=== PATIENT | female | born 1970 | race African-American/Black ===

== ENCOUNTER 2019-05-19 17:02 | Emergency (ER) | payer MEDICAID ==
[~2019-05-19] VITALS: Ht 177.8 cm; Wt 119.3 kg
[~2019-05-19 17:02] MED LIST: METF-988 PO
[2019-05-19 17:08] VITALS: BP 133/75
[2019-05-19 19:19] VITALS: BP 118/72
== END 2019-05-19 19:19 | disposition home or self-care (01) ==
LOC: MED 17:02
DX: R25.3 Fasciculation (principal); H53.9 Unspecified visual disturbance
CPT/HCPCS: 82948; 99283

== ENCOUNTER 2019-06-11 14:01 | Emergency (ER) | payer MEDICAID ==
[~2019-06-11] VITALS: Ht 172.7 cm; Wt 119.7 kg
[2019-06-11 14:14] VITALS: BP 140/79
--- NOTE | 2019-06-11 15:01 | NUR ---
PT AMBULATED TO ER BED 7
--- NOTE | 2019-06-11 15:10 | NUR ---
49/F TO ED WITH C/O CP. EKG PERFORMED PER TRIAGE PROTOCOL. NO DISTRESS NOTED. PT REPORTS CHEST PAIN WITH L ARM NUMBNESS UPON MOVEMENT OF ARM. SMALL EQUIPMENT OPERATOR EQUAL BIALTERALLY. NO DEFECITS NOTED. SKIN WARM, DRY. SPEAKING IN COMPLETE SENTENCES. IN BED FOR MD HOANG. ATTATCHED TO [facility] MONITORING.
--- NOTE | 2019-06-11 15:18 | NUR ---
Patient being evaluated by Dr. Hawthorne at bedside.
--- NOTE | 2019-06-11 15:45 | NUR ---
Patient taken to XRAY via wheelchair by tech.
[2019-06-11 16:24] LABS: BASOPHILS # (AUTO) 0.1 K/uL (0.00-0.22); BASOPHILS % (AUTO) 0.9 % (0.0-2.0); EOSINOPHILS # (AUTO) 0.1 K/uL (0-0.4); HEMATOCRIT 37.9 % (36-48); HEMOGLOBIN 12.4 g/dL (12.0-16.0); LYMPHOCYTES # (AUTO) 3.7 K/uL (2.5-16.5); LYMPHOCYTES % (AUTO) 47.5 % (20.5-51.1); MEAN CORPUSCULAR HEMOGLOBIN 31 pg (27-31); MEAN CORPUSCULAR HGB CONC 33 g/dL (33-37); MEAN CORPUSCULAR VOLUME 94.6 fL (80-94); MONOCYTES # (AUTO) 0.5 K/uL (0.8-1.0); MONOCYTES % (AUTO) 6.5 % (1.7-9.3); NEUTROPHILS # (AUTO) 3.4 K/uL (1.8-7.7); NEUTROPHILS % (AUTO) 44.1 % (42.2-75.2); PLATELET COUNT (AUTO) 251 K/uL (140-450); RED CELL DISTRIBUTION WIDTH 13.5 % (11.6-13.7); WHITE BLOOD COUNT (AUTO) 7.7 K/uL (4.8-10.8)
[2019-06-11 16:46] LABS: ALBUMIN 4.3 g/dL (3.4-5.0); CARBON DIOXIDE 31.2 mmol/L (21-32); CREATININE 0.8 mg/dL (0.6-1.3); MAGNESIUM 1.7 mg/dL (1.8-2.4); POTASSIUM 4.2 mmol/L (3.5-5.1); TOTAL BILIRUBIN 0.4 mg/dL (0.0-1.0)
[2019-06-11 17:58] VITALS: BP 127/74
--- NOTE | 2019-06-11 18:00 | NUR ---
Patient discharged with v/s stable. Written and verbal after care instructions ABOUT CHEST PAIN given and explained. Patient alert, oriented and verbalized understanding of instructions. Ambulatory with steady gait. All questions addressed prior to discharge. ID band removed. Patient advised to follow up with PMD. Rx of VALIUM given. Patient educated on indication of medication including possible reaction and side effects. Opportunity to ask questions provided and answered.
== END 2019-06-11 18:00 | disposition home or self-care (01) ==
LOC: MED 14:01
DX: M25.561 Pain in right knee (principal); M25.562 Pain in left knee; M47.896 Other spondylosis, lumbar region; E11.9 Type 2 diabetes mellitus without complications; F17.200 Nicotine dependence, unspecified, uncomplicated; Z79.84 Long term (current) use of oral hypoglycemic drugs
CPT/HCPCS: 36415; 72100; 73562; 80053; 83690; 83735; 84484; 85025; 93005; 99284

== ENCOUNTER 2020-03-13 13:05 | Emergency (ER) | payer MEDICAID ==
[~2020-03-13] VITALS: Ht 175.3 cm; Wt 122.5 kg
[2020-03-13 13:12] VITALS: BP 143/78
--- NOTE | 2020-03-13 13:25 | NUR ---
PT C/O DRY COUGH X WITH ITCHY THROAT FOR 1 WEEK, LEFT-SIDED CP RADIATING TO POSTERIOR AND LEFT ARM WITH TINGLING AND NUMBNESS SENSATION FOR 3 DAYS ACCONPANIED BY NAUSEA, DIARRHEA, CHILL, HOT FLUSHES. DENIES LUMPS ON LEFT BREAT, AND LAST MAMMOGRAM WAS DONE ONE YEAR AGO WITH NORMAL FINGDING. DENIES FEVER, SOB, VOMITING, SORE THROAT, OR SICK CONTACTS. AAOX4 WITH EVEN AND STEADY GAIT; HR EVEN AND REGULAR; PT DENIES ANY FEVER, CP, SOB, OR COUGH AT THIS TIME; PATIENT STATES PAIN OF 6/10 AT THIS TIME; VSS; PATIENT POSITIONED FOR COMFORT; HOB ELEVATED; BEDRAILS UP X1; BED DOWN. ER MD MADE AWARE OF PT STATUS.
--- NOTE | 2020-03-13 13:25 | NUR ---
PT AMB TO BED 1. HANED ON URINE CUP.
--- NOTE | 2020-03-13 13:55 | NUR ---
PT BIB SELF C/O COUGH X 1 WEEK & C/O NAUSEA , DIARRHEA, , CHILL, LEFT CHEST PAIN RADIATING TO LEFT ARM , THROAT ITCHING X 3 DAYS. BLOOD SUGAR 165 AT THIS TIME. MED HX: DM. KECIA VALENZUELA TO NATALYA
[2020-03-13 14:34] LABS: BASOPHILS # (AUTO) 0.1 K/uL (0.00-0.22); BASOPHILS % (AUTO) 0.9 % (0.0-2.0); EOSINOPHILS # (AUTO) 0.1 K/uL (0-0.4); EOSINOPHILS % (AUTO) 1.6 % (0.0-4.0); HEMATOCRIT 39.9 % (36-48); HEMOGLOBIN 13.1 g/dL (12.0-16.0); LYMPHOCYTES # (AUTO) 3.3 K/uL (2.5-16.5); MEAN CORPUSCULAR HEMOGLOBIN 32 pg (27-31); MEAN CORPUSCULAR HGB CONC 33 g/dL (33-37); MEAN CORPUSCULAR VOLUME 96.3 fL (80-94); MONOCYTES # (AUTO) 0.4 K/uL (0.8-1.0); MONOCYTES % (AUTO) 5.2 % (1.7-9.3); NEUTROPHILS % (AUTO) 44.3 % (42.2-75.2); PLATELET COUNT (AUTO) 237 K/uL (140-450); RED BLOOD CELL COUNT(AUTO) 4.14 MIL/uL (4.20-5.40); RED CELL DISTRIBUTION WIDTH 14.3 % (11.6-13.7); WHITE BLOOD COUNT (AUTO) 6.8 K/uL (4.8-10.8)
[2020-03-13 15:08] LABS: ALBUMIN 3.7 g/dL (3.4-5.0); ANION GAP 11.2 (8-16); CARBON DIOXIDE 28.8 mmol/L (21-32); TOTAL BILIRUBIN 0.4 mg/dL (0.0-1.0)
--- NOTE | 2020-03-13 15:35 | NUR ---
DR. ROJAS IS REEVALUATING PT AT BEDSIDE.
[2020-03-13 16:03] VITALS: BP 118/71
--- NOTE | 2020-03-13 16:03 | NUR ---
DPatient discharged with v/s stable. Written and verbal after care instructions given and explained. Patient verbalized understanding. Ambulatory with steady gait. All questions addressed prior to discharge. Advised to follow up with PMD.
== END 2020-03-13 16:03 | disposition home or self-care (01) ==
LOC: MED 13:05
DX: B34.9 Viral infection, unspecified (principal); R07.9 Chest pain, unspecified; M54.2 Cervicalgia
CPT/HCPCS: 36415; 71045; 80053; 83690; 83880; 84484; 85025; 93005; 99285; Q0092

== ENCOUNTER 2020-06-27 08:23 | Emergency (ER) | payer MEDICAID ==
[~2020-06-27] VITALS: Ht 175.3 cm; Wt 123.6 kg
[2020-06-27 08:28] VITALS: BP 129/75
--- NOTE | 2020-06-27 08:31 | NUR ---
Patient ambulated to bed 11. RN evaluating patient at bedside.
--- NOTE | 2020-06-27 08:46 | NUR ---
50 Y/O FEMALE COMES FROM HOME PRESENTS TO ED C/O CHEST PAIN 2/10 INTERMITTEN / STABBING IN QUALITY X 1.5 WEEKS. PT ALSO STATES SHE HAS UPPER BACK PAIN 2/10 INTERMITTEN/ SHARP IN QUALITY. PT STATES SHE RECENTLY HAD A ECHO AND STRESS TEST (PENDING RESULTS). AOX4, LUNGS CLEAR, HEART NORMAL RATE/RHYTHM, CAP REFILL 2 SEC, NO SIGNS OF DISTESS. DENIES SOB, N/V/D.
--- NOTE | 2020-06-27 08:46 | NUR ---
Dr. Davidson is evaluating the patient at bedside.
--- NOTE | 2020-06-27 08:50 | NUR ---
EMT PERFORMING EKG AT BEDSIDE
[2020-06-27] MEDS ORDERED: ACETAMINOPHEN 325 MG TAB PO ONE (09:05)
[2020-06-27] MEDS ORDERED: IBUPROFEN 600 MG TAB PO ONE (09:05)
[2020-06-27 09:18] LABS: BASOPHILS # (AUTO) 0.1 K/uL (0.00-0.22); BASOPHILS % (AUTO) 0.7 % (0.0-2.0); EOSINOPHILS # (AUTO) 0.1 K/uL (0-0.4); EOSINOPHILS % (AUTO) 1.9 % (0.0-4.0); HEMATOCRIT 36.4 % (36-48); HEMOGLOBIN 12.1 g/dL (12.0-16.0); LYMPHOCYTES # (AUTO) 3.2 K/uL (2.5-16.5); LYMPHOCYTES % (AUTO) 45.8 % (20.5-51.1); MEAN CORPUSCULAR HEMOGLOBIN 31 pg (27-31); MEAN CORPUSCULAR HGB CONC 33 g/dL (33-37); MONOCYTES # (AUTO) 0.5 K/uL (0.8-1.0); MONOCYTES % (AUTO) 7.2 % (1.7-9.3); NEUTROPHILS # (AUTO) 3.1 K/uL (1.8-7.7); NEUTROPHILS % (AUTO) 44.4 % (42.2-75.2); PLATELET COUNT (AUTO) 245 K/uL (140-450); RED BLOOD CELL COUNT(AUTO) 3.87 MIL/uL (4.20-5.40); RED CELL DISTRIBUTION WIDTH 13.4 % (11.6-13.7)
--- NOTE | 2020-06-27 09:18 | NUR ---
engineer technical staff at bedside.
--- NOTE | 2020-06-27 09:24 | NUR ---
Dr. Davidson is evaluating the patient at bedside.
[2020-06-27 09:28] LABS: ANION GAP 14.2 (8-16); CARBON DIOXIDE 30.7 mmol/L (21-32); CREATININE 0.9 mg/dL (0.6-1.3); POTASSIUM 3.9 mmol/L (3.5-5.1)
--- NOTE | 2020-06-27 10:33 | NUR ---
PT STATES THAT CHEST PAIN IS STILL PRESENT, BUT HAS DECREASED
--- NOTE | 2020-06-27 11:25 | NUR ---
LAB AT BEDSIDE
--- NOTE | 2020-06-27 12:23 | NUR ---
Dr. Davidson is reevaluating the patient at bedside.
[2020-06-27 12:32] VITALS: BP 122/69
--- NOTE | 2020-06-27 12:32 | NUR ---
Patient discharged with v/s stable. Written and verbal after care instructions given and explained. Patient verbalized understanding. Ambulatory with steady gait. All questions addressed prior to discharge. Advised to follow up with PMD.
== END 2020-06-27 12:32 | disposition home or self-care (01) ==
LOC: MED 08:23
DX: R07.9 Chest pain, unspecified (principal); E11.65 Type 2 diabetes mellitus with hyperglycemia; I10 Essential (primary) hypertension; Z79.899 Other long term (current) drug therapy
CPT/HCPCS: 36415; 71045; 80048; 81002; 83880; 84484; 85025; 93005; 99285

== ENCOUNTER 2021-05-19 15:48 | Emergency (ER) | payer MEDICAID ==
[~2021-05-19] VITALS: Ht 175.3 cm; Wt 119.7 kg
[2021-05-19 15:51] VITALS: BP 127/77
--- NOTE | 2021-05-19 15:59 | NUR ---
Patient wheelchair assisted to bed 2.
[2021-05-19 16:44] LABS: BASOPHILS % (AUTO) 0.4 % (0.0-2.0); EOSINOPHILS # (AUTO) 0.1 K/uL (0-0.4); EOSINOPHILS % (AUTO) 1.4 % (0.0-4.0); HEMATOCRIT 38.3 % (36-48); HEMOGLOBIN 12.6 g/dL (12.0-16.0); LYMPHOCYTES # (AUTO) 3.2 K/uL (2.5-16.5); MEAN CORPUSCULAR HEMOGLOBIN 31 pg (27-31); MEAN CORPUSCULAR HGB CONC 33 g/dL (33-37); MEAN CORPUSCULAR VOLUME 94.8 fL (80-94); MONOCYTES # (AUTO) 0.5 K/uL (0.8-1.0); MONOCYTES % (AUTO) 6.7 % (1.7-9.3); NEUTROPHILS # (AUTO) 3.3 K/uL (1.8-7.7); NEUTROPHILS % (AUTO) 46.5 % (42.2-75.2); PLATELET COUNT (AUTO) 241 K/uL (140-450); RED BLOOD CELL COUNT(AUTO) 4.04 MIL/uL (4.20-5.40); RED CELL DISTRIBUTION WIDTH 14.4 % (11.6-13.7); WHITE BLOOD COUNT (AUTO) 7.1 K/uL (4.8-10.8)
--- NOTE | 2021-05-19 16:56 | NUR ---
51 Y/O F, PATIENT PRESENTS TO ED WITH CHEST PAIN THAT RADIATES TO BACK AND L ARM, PAIN STARTED LAST NIGHT. DENIES N/V/D; SKIN IS PINK/WARM/DRY; AAOX4 WITH EVEN AND STEADY GAIT; LUNGS CLEAR BL; HR EVEN AND REGULAR; PT DENIES ANY FEVER, SOB, OR COUGH AT THIS TIME; PATIENT STATES PAIN OF 7/10 AT THIS TIME, AGITATES WITH MOVEMENT; VSS; PATIENT POSITIONED FOR COMFORT; HOB ELEVATED; BEDRAILS UP X2; BED DOWN. ER MD MADE AWARE OF PT STATUS. PMH: DM2 AILYN
[2021-05-19 17:16] LABS: ALBUMIN 3.8 g/dL (3.4-5.0); ANION GAP 12.2 (8-16); CARBON DIOXIDE 30.5 mmol/L (21-32); CREATININE 0.9 mg/dL (0.6-1.3); POTASSIUM 3.7 mmol/L (3.5-5.1); TOTAL BILIRUBIN 0.3 mg/dL (0.0-1.0)
[2021-05-19] MEDS ORDERED: IBUP-2213 PO (17:54)
[2021-05-19 18:22] VITALS: BP 115/58
== END 2021-05-19 18:21 | disposition home or self-care (01) ==
LOC: MED 15:48
DX: R07.9 Chest pain, unspecified (principal); M54.6 Pain in thoracic spine; M54.2 Cervicalgia; X58.XXXA Exposure to other specified factors, initial encounter; Y93.89 Activity, other specified; Y92.89 Other specified places as the place of occurrence of the external cause; Y99.8 Other external cause status
CPT/HCPCS: 36415; 71045; 80053; 84484; 85025; 93005; 99285; Q0092

== ENCOUNTER 2022-02-21 04:34 | Emergency (ER) | payer MEDICAID ==
[~2022-02-21] VITALS: Ht 175.3 cm; Wt 124.3 kg
[~2022-02-21 04:34] MED LIST changes: +IBUP-2213 PO; +METF-1243 PO; -METF-988 PO
[2022-02-21 04:41] VITALS: BP 127/74
--- NOTE | 2022-02-21 04:50 | NUR ---
COVID-19 and flu swabs collected and sent to lab.
--- NOTE | 2022-02-21 04:51 | NUR ---
Patient ambulated to bed 1.
--- NOTE | 2022-02-21 05:06 | NUR ---
Dr. Munson examining patient.
[2022-02-21] MEDS ORDERED: ACETAMINOPHEN EXTRA STRENGTH 500 MG TAB PO ONE (05:10)
[2022-02-21] MEDS ORDERED: ACET-10509 PO (05:18)
[2022-02-21] MEDS ORDERED: PROM118S5 PO (05:18)
[2022-02-21 06:38] VITALS: BP 121/74
== END 2022-02-21 06:40 | disposition home or self-care (01) ==
LOC: MED 04:34
DX: B34.9 Viral infection, unspecified (principal); Z20.822 Contact with and (suspected) exposure to COVID-19; I10 Essential (primary) hypertension; E11.9 Type 2 diabetes mellitus without complications; Z87.442 Personal history of urinary calculi; Z79.4 Long term (current) use of insulin; Z79.899 Other long term (current) drug therapy; Z98.890 Other specified postprocedural states
CPT/HCPCS: 99283

== ENCOUNTER 2022-06-13 09:17 | Inpatient (IN) | payer MEDICAID ==
[~2022-06-13] VITALS: Ht 175.3 cm; Wt 124.7 kg
[~2022-06-13 09:17] MED LIST changes: +ACET-10509 PO; +PROM118S5 PO
[2022-06-13 09:27] VITALS: BP 129/71
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
--- NOTE | 2022-06-13 09:43 | NUR ---
IV ESTABLISHED TO LEFT AC WITH 20G. EKG DONE AT BEDSIDE, PT IN GOWN AND ON MONITOR. NO ACUTE DISTRESS NOTED.
--- NOTE | 2022-06-13 10:00 | NUR ---
XR TAKEN AT BEDSIDE
--- NOTE | 2022-06-13 10:04 | NUR ---
Patient being evaluated by DR RUSHING at bedside.
[2022-06-13 10:05] LABS: BASOPHILS # (AUTO) 0.1 K/uL (0.00-0.22); BASOPHILS % (AUTO) 0.8 % (0.0-2.0); EOSINOPHILS # (AUTO) 0.1 K/uL (0-0.4); EOSINOPHILS % (AUTO) 1.3 % (0.0-4.0); HEMATOCRIT 38.4 % (36-48); HEMOGLOBIN 12.3 g/dL (12.0-16.0); LYMPHOCYTES # (AUTO) 3.7 K/uL (2.5-16.5); MEAN CORPUSCULAR HEMOGLOBIN 30 pg (27-31); MEAN CORPUSCULAR HGB CONC 32 g/dL (33-37); MEAN CORPUSCULAR VOLUME 94.9 fL (80-94); MONOCYTES # (AUTO) 0.6 K/uL (0.8-1.0); MONOCYTES % (AUTO) 7.7 % (1.7-9.3); NEUTROPHILS # (AUTO) 3.7 K/uL (1.8-7.7); NEUTROPHILS % (AUTO) 45.2 % (42.2-75.2); PLATELET COUNT (AUTO) 234 K/uL (140-450); RED BLOOD CELL COUNT(AUTO) 4.05 MIL/uL (4.20-5.40); RED CELL DISTRIBUTION WIDTH 13.7 % (11.6-13.7); WHITE BLOOD COUNT (AUTO) 8.3 K/uL (4.8-10.8)
[2022-06-13 10:20] LABS: ALBUMIN 3.4 g/dL (3.4-5.0); ANION GAP 8.5 (8-16); ASPARTATE AMINOTRANSFERASE 16 U/L (15-37); CHLORIDE 104 mmol/L (98-107); CREATININE 0.8 mg/dL (0.6-1.3); GFR ARICAN-AMERICAN 96 mL/min (>90); GLUCOSE 124 mg/dL (74-106); POTASSIUM 4.5 mmol/L (3.5-5.1); SODIUM SERUM 138 mmol/L (136-145); TOTAL BILIRUBIN 0.2 mg/dL (0.0-1.0); UREA NITROGEN, BLOOD 15 mg/dL (7-18)
--- NOTE | 2022-06-13 10:26 | NUR ---
CHRIS COLLECTED AND SENT TO LAB
--- NOTE | 2022-06-13 10:50 | NUR ---
PT UNABLE TO PROVIDE URINE AT THIS TIME. ERMD AWARE
[2022-06-13] MEDS ORDERED: HYDR-4004 PO (11:00)
[2022-06-13] MEDS ORDERED: GABA300C PO (11:00)
[2022-06-13] MEDS ORDERED: SIMV40TA1 PO (11:00)
[2022-06-13] MEDS ORDERED: LOSA100T1 PO (11:00)
[2022-06-13] MEDS ORDERED: ASPI-1749 PO (11:00)
--- NOTE | 2022-06-13 11:40 | NUR ---
URINE COLLECTED AND SENT TO LAB
--- NOTE | 2022-06-13 12:20 | NUR ---
Patient will be admitted to care of DR MORALES. Admited to TELE. Will go to room 124A. Belongings list completed. Report to JESS MCDONOUGH.
[2022-06-13] MEDS ORDERED: DOCUSATE SODIUM 100 MG GELCAP PO PRN (12:25)
[2022-06-13] MEDS ORDERED: MORPHINE SULFATE 2 MG/ML SYR IVP PRN (12:25)
[2022-06-13] MEDS ORDERED: LORazepam 2 MG/ML VIAL IVP PRN (12:25)
[2022-06-13] MEDS ORDERED: MAG SULF 2000 MG/WATER PREMIX 50 ML IV PRN (12:25)
[2022-06-13] MEDS ORDERED: DEXTROSE 50% 50 ML SYR IVP PRN (12:25)
[2022-06-13] MEDS ORDERED: POTASSIUM CHLORIDE 10 MEQ TABER PO PRN (12:25)
[2022-06-13] MEDS ORDERED: ONDANSETRON 4 MG/2 ML VIAL IVP PRN (12:25)
[2022-06-13] MEDS ORDERED: ZOLPIDEM 10 MG TAB PO PRN (12:25)
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
[2022-06-13 13:30] VITALS: BP 128/66
[2022-06-13] MEDS: GABAPENTIN 300 MG CAP PO SCH ×2 (13:46→17:02)
[2022-06-13 16:00] VITALS: BP 126/67
[2022-06-13] MEDS: BLOOD GLUCOSE MONITORING 1 DEV DEV FS SCH ×2 (16:35→20:46)
[2022-06-13] MEDS: INSULIN LISPRO SLIDING SCALE 100 UNITS/ML VIAL SUBQ PRN (16:36)
[2022-06-13] MEDS: ACETAMINOPHEN 325 MG TAB PO PRN (16:56)
[2022-06-13 20:00] VITALS: BP 121/63
--- NOTE | 2022-06-13 20:00 | NUR ---
ROUNDS , NO S/SSX OF ACUTE DISTRESS NOTED AT THIS TIME , DENIES PAIN , WILL PROVIDE MIDNIGHT SNACK .
[2022-06-13] MEDS ORDERED: SIMVASTATIN 40 MG TAB PO SCH (21:00)
--- NOTE | 2022-06-13 22:00 | NUR ---
NO COMPLAIN MADE , ON TELE MONITOR - SR , WILL CONT. TO MONITOR .
[2022-06-14] VITALS: BP 110/60
--- NOTE | 2022-06-14 | NUR ---
SLEEPING , AROUSABLE BY SOUNDS AND TOUCH , NO S/SX OF ACUTE DISTRESS NOTED AT THIS TIME , CALL LIGHT WITHIN REACH .
[2022-06-14 04:00] VITALS: BP 111/65
[2022-06-14] MEDS: BLOOD GLUCOSE MONITORING 1 DEV DEV FS SCH ×2 (05:18→11:31)
--- NOTE | 2022-06-14 05:20 | NUR ---
C/O BACK PAIN , BUT DENIES CHEST PAIN OR THE PAIN RADIATES ELSEWHERE IN THE BODY PER PT IT IS ONLY BACK PAIN - WILL MEDICATE .
[2022-06-14] MEDS: ACETAMINOPHEN 325 MG TAB PO PRN (05:21)
[2022-06-14 06:00] LABS: BASOPHILS # (AUTO) 0.1 K/uL (0.00-0.22); BASOPHILS % (AUTO) 0.8 % (0.0-2.0); EOSINOPHILS # (AUTO) 0.1 K/uL (0-0.4); EOSINOPHILS % (AUTO) 1.4 % (0.0-4.0); HEMATOCRIT 39.4 % (36-48); HEMOGLOBIN 12.9 g/dL (12.0-16.0); LYMPHOCYTES # (AUTO) 3.2 K/uL (2.5-16.5); LYMPHOCYTES % (AUTO) 42.8 % (20.5-51.1); MEAN CORPUSCULAR HEMOGLOBIN 31 pg (27-31); MEAN CORPUSCULAR HGB CONC 33 g/dL (33-37); MEAN CORPUSCULAR VOLUME 93.9 fL (80-94); MONOCYTES # (AUTO) 0.5 K/uL (0.8-1.0); MONOCYTES % (AUTO) 6.2 % (1.7-9.3); NEUTROPHILS # (AUTO) 3.7 K/uL (1.8-7.7); NEUTROPHILS % (AUTO) 48.8 % (42.2-75.2); PLATELET COUNT (AUTO) 204 K/uL (140-450); RED BLOOD CELL COUNT(AUTO) 4.19 MIL/uL (4.20-5.40); RED CELL DISTRIBUTION WIDTH 13.8 % (11.6-13.7); WHITE BLOOD COUNT (AUTO) 7.5 K/uL (4.8-10.8)
[2022-06-14 07:03] LABS: ANION GAP 10.6 (8-16); CARBON DIOXIDE 29.5 mmol/L (21-32); CREATININE 0.9 mg/dL (0.6-1.3); POTASSIUM 4.1 mmol/L (3.5-5.1)
--- NOTE | 2022-06-14 07:26 | NUR ---
ENDORSED - PT FOR CONT. OF CARE , AWAKE .
[2022-06-14 08:00] VITALS: BP 97/52
[2022-06-14] MEDS ORDERED: LOSARTAN 50 MG TAB PO SCH (09:00)
[2022-06-14] MEDS ORDERED: ASPIRIN 81 MG TAB.CHEW PO SCH (09:00)
[2022-06-14] MEDS ORDERED: hydroCHLOROthiazide 25 MG TAB PO SCH (09:00)
[2022-06-14] MEDS: GABAPENTIN 300 MG CAP PO SCH ×2 (09:05→13:09)
--- NOTE | 2022-06-14 10:43 | NUR ---
PATIENT HAS BEEN SCREENED AND CATEGORIZED LOW NUTRITION RISK. PATIENT WILL BE SEEN WITHIN 7 DAYS OF ADMISSION. 06/20/22 REVIEWED BY GLO LOPEZ RD
--- NOTE | 2022-06-14 10:58 | NUR ---
AROUND 0800, PATIENT'S BP 97/52, WHEN NURSE GIVE PATIENT MORNING MEDICATION, NURSE INFORM PATIENT THAT HER BP IS SLIGHT LOWER TODAY, AND NURSE WILL HOLD PATIENT'S ORETIC BUT PATIENT WANT NURSE HOLD ZOCAAR INSTEAD. WILL CONTINUE TO MONITOR.
[2022-06-14] MEDS: INSULIN LISPRO SLIDING SCALE 100 UNITS/ML VIAL SUBQ PRN (11:31)
[2022-06-14 12:00] VITALS: BP 128/71
[2022-06-14] MEDS ORDERED: KETOROLAC 30 MG/ML VIAL IM SCH (13:39)
[2022-06-14] MEDS ORDERED: DICL-342 PO (13:43)
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
[2022-06-14 15:09] VITALS: BP 128/71
--- NOTE | 2022-06-14 16:06 | NUR ---
DISCHARGE PATIENT IN STABLE CONDITION PER PCP ORDER. DISCHARGE CONSENT SIGNED, DISCHARGE INSTRUCTION GIVEN, IV ACCESS, WRIST BAND, & TEL. MONITOR REMOVED BEFORE PATIENT WALK OUT THE FACILITY.
== END 2022-06-14 16:05 | disposition home or self-care (01) | DRG 203 ==
LOC: MED 09:17 → MTU 12:20
PROVIDERS: ADMIT Family Medicine; ATTEND Family Medicine
DX: M94.0 Chondrocostal junction syndrome [Tietze] (principal); E44.1 Mild protein-calorie malnutrition; E11.40 Type 2 diabetes mellitus with diabetic neuropathy, unspecified; G57.01 Lesion of sciatic nerve, right lower limb; I10 Essential (primary) hypertension; E66.01 Morbid (severe) obesity due to excess calories; E78.5 Hyperlipidemia, unspecified; Z20.822 Contact with and (suspected) exposure to COVID-19; Z90.49 Acquired absence of other specified parts of digestive tract; Z68.41 Body mass index [BMI] 40.0-44.9, adult; Z79.4 Long term (current) use of insulin
CPT/HCPCS: 36415; 71045; 80048; 80053; 82948; 83735; 84484; 85025; 87081; 93005; 99285; J1885; Q0092